=== PATIENT | male | born 1995 | race African-American/Black ===

== ENCOUNTER 2021-09-13 07:22 | Emergency (ER) | payer OTHER, MEDICAID ==
[~2021-09-13] VITALS: Ht 182.9 cm; Wt 64.0 kg
[2021-09-13] MEDS ORDERED: METO-293 MT (08:13)
[2021-09-13] MEDS ORDERED: IBUP-2029 MT (08:13)
[2021-09-13] MEDS ORDERED: METOCLOPRAMIDE HCL 5MG TABLET PO ONE (08:15)
[2021-09-13] MEDS ORDERED: IBUPROFEN 600MG TABLET PO ONE (08:15)
[2021-09-13 08:20] VITALS: BP 121/76
== END 2021-09-13 08:24 | disposition home or self-care (01) ==
LOC: ER 07:22
DX: G44.209 Tension-type headache, unspecified, not intractable (principal); F12.10 Cannabis abuse, uncomplicated
CPT/HCPCS: 99283; J8597